=== PATIENT | male | born 1970 | race Caucasian/White ===

== ENCOUNTER 2021-03-01 09:46 | Emergency (ER) | payer BC ==
[~2021-03-01] VITALS: Ht 170.2 cm; Wt 78.0 kg
--- NOTE | 2021-03-01 10:00 | NUR ---
Pt arrived C/O chest tightness and generalized body aches. States having received Moderna booster vaccine yesterday. Also states recently seeing cardiology for Holter monitor testing. VSS, EKG done, pt resting semi-fowlers in stable condition, ready for provider assessment.
[2021-03-01] MEDS ORDERED: ROSU40TA PO (10:06)
[2021-03-01] MEDS ORDERED: ASPI81TA31 PO (10:06)
[2021-03-01] MEDS ORDERED: BUSP10TA3 PO (10:06)
[2021-03-01] MEDS ORDERED: FLUO40CA49 PO (10:06)
--- NOTE | 2021-03-01 10:47 | NUR ---
Provider compeleted bedside assessment with pt. Saline lock placed and labs drawn. CXR being done at bedside. Pt aware or plan awaiting lab results with possible re-draw after a few hours. Pt in stable condition.
[2021-03-01 10:50] LABS: MEAN CORPUSCULAR HEMOGLOBIN 32.1 uug (23.8-33.4); MEAN CORPUSCULAR VOLUME 91.2 fL (73.0-96.2); PLATELET COUNT (AUTO) 313 K/uL (152-348)
[2021-03-01 10:59] LABS: CREATININE 1.2 mg/dL (0.6-1.3); POTASSIUM 4.5 mmol/L (3.5-5.1)
[2021-03-01] MEDS ORDERED: MORPHINE SULFATE 4 MG/1 ML DISP.SYRIN IV ONE (11:00)
[2021-03-01] MEDS ORDERED: IV NS 1000 ML 1,000 ML IV ONE (11:00)
[2021-03-01] MEDS ORDERED: ASPIRIN 325 MG TABLET PO ONE (11:00)
[2021-03-01] MEDS ORDERED: ASPIRIN 325 MG TABLET ONE (11:06)
[2021-03-01] MEDS ORDERED: MORPHINE SULFATE 4 MG/1 ML DISP.SYRIN ONE (11:07)
[2021-03-01 11:16] LABS: BILIRUBIN,DIRECT 0.1 mg/dL (0.0-0.2); BILIRUBIN,TOTAL 0.8 mg/dL (0.2-1.0); TOTAL PROTEIN, SERUM 8.2 g/dL (6.4-8.2)
--- NOTE | 2021-03-01 11:29 | NUR ---
Pt denies any adverse event following medication administration. Denies any pain at this time, in stable condition awaiting lab results.
--- NOTE | 2021-03-01 12:26 | NUR ---
Provider requesting repeat EKG when re-drawing for Troponin level at 1345.
--- NOTE | 2021-03-01 14:35 | NUR ---
Patient discharged to home in stable condition. Written and verbal after care instructions given. Patient verbalizes understanding of instructions. Stressed follow up or return to ER for worsening s/s.
[2021-03-01 14:53] VITALS: BP 135/80
== END 2021-03-01 14:35 | disposition home or self-care (01) ==
LOC: ER 09:48
DX: R07.2 Precordial pain (principal); E78.00 Pure hypercholesterolemia, unspecified; D72.829 Elevated white blood cell count, unspecified; Z82.49 Family history of ischemic heart disease and other diseases of the circulatory system; Z79.82 Long term (current) use of aspirin; Z79.899 Other long term (current) drug therapy; F32.A Depression, unspecified; R00.0 Tachycardia, unspecified; R03.0 Elevated blood-pressure reading, without diagnosis of hypertension
CPT/HCPCS: 36415; 71045; 80048; 80076; 83036; 83880; 84484 ×2; 85025; 85379; 93005 ×2; 96361; 96374; 99285; J2270; 70030-TC; A4663; J7030